=== PATIENT | male | born 1970 | race Caucasian/White ===

== ENCOUNTER 2017-10-05 08:00 | Outpatient (RCR) | payer OTHER, SELFPAY ==
--- NOTE | 2017-09-21 09:07 | PTTR_ITS ---
DATE: 09/21/17 SUBJECTIVE: Pt reporting walking about 4.5 miles this weekend without any increase in discomfort through his abdomen. He notes he has not tried any running yet but this is his goal at some point. He also notes that when performing aggressive abdominal exercises especially when involving both upper and lower body dynamic movements he has increased pressure through hernia sight. OBJECTIVE: Therapeutic procedures ([id number]). * X See flow sheet: Initiate intrinsic stabilization activities beginning with PPT and TrA activation followed by light LE dynamic movements. I do provide manual bracing at the hernia sight with some activities. Add in Pallof pull down incorporating PPT and mini marches. Pt has good body awareness and breathing techniques. * X Provided skilled instruction in proper exercise performance: * X Provided skilled manual cues to facilitate proper muscle recruitment and/ or movement pattern: * X Other: With appropriate diaphragmatic breathing pt has less protrusion of his hernia and less abdominal pressure. Pt was also seeing national sales trainer here in the clinic for gross body strengthening. See flow sheet for details. Once pt increases his intrinsic core strength I will take a look at his running mechanics. Pt was given thera band for home completion of Pallof exercises. Direct treatment time: 20 minutes Total treatment time: 20 minutes Tamara Mckay PTA
--- NOTE | 2017-10-05 09:33 | PTTR_ITS ---
DATE: 10/05/17 SUBJECTIVE: Zachery reporting doing well today. He is anxious to start some running again and would like to review running mechanics today. He has completed his strengthening exercises via hop trainer supervision prior to seeing me today without discomfort through his abdomen and increased confidence when completing core strengthening exercises. OBJECTIVE: * X Gait Training - ([id number] x1): Observe walking and running gait mechanics today via treadmill use. Initial observation shows slight pelvic drop on the right with walking and jogging, pronation through right foot and ankle, increased stride length with heel strike. I have him focus on shortening his stride length and increasing his dianelys which immediately creates forefoot strike bilaterally with less pronation noted through the right foot and decreased pelvic drop to the right. No discomfort noted throughout. I do suggest possible utilizing of accommodative type orthotics and utilization of metronome at 160-180 beats per minute while practicing shortened stride length and increased dianelys. Will discuss possible utilization of orthotic device with primary therapist Zachery Lal PT. Pt has a follow up next week for progressions to his strengthening program at that time. Will have pt re- schedule with primary therapist after that point. Direct treatment time: 20 minutes Total treatment time: 20 minutes Tamara Mckay PTA
== END 2017-10-21 23:59 | disposition home or self-care (01) ==
LOC: PT 08:00
PROVIDERS: PCP Nurse Practitioner Family; Referring Provider Nurse Practitioner Family; Visit Provider Nurse Practitioner Family
DX: K43.9 Ventral hernia without obstruction or gangrene (principal)
CPT/HCPCS: 97110; 97116

== ENCOUNTER 2018-04-14 08:10 | Outpatient (CLI) | payer OTHER, SELFPAY ==
--- NOTE | 2018-04-14 11:26 | DI.RAD_ITS ---
SYMPTOMS/DIAGNOSIS: FEVER, R50.9, ? PNEUMONIA PA AND LATERAL CHEST: The heart is normal in size. The lungs are clear. The mediastinal structures and pleura appear intact. CONCLUSION: Normal chest.
== END 2018-04-14 08:30 ==
PROVIDERS: PCP Nurse Practitioner Family; Visit Provider Nurse Practitioner Family
DX: R50.9 Fever, unspecified (principal)
CPT/HCPCS: 71046

== ENCOUNTER 2018-07-14 12:35 | Outpatient (CLI) | payer OTHER, SELFPAY ==
[2018-07-14 13:00] LABS: Abs Immature Grans 0.09 k/cumm (0.0-0.09); Absolute Basophil Count 0.03 k/cumm (0.0-0.2); Absolute Eosinophil Count 0.23 k/cumm (0.0-0.7); Absolute Lymphocyte Count 2.51 k/cumm (1.2-3.4); Absolute Monocyte Count 0.81 k/cumm (0.11-0.7); Absolute Neutrophil Count 4.06 k/cumm (1.2-6.7); Basophils % 0.4; HCT 50.2 % (40.0-50.0); HGB 16.8 g/dL (13.5-17.5); Immature Grans % 1.2; Lymphocytes % 32.5; Mean Corp. HGB Concentration 33.5 g/dL (32.0-36.0); Mean Corpuscular Hemoglobin 29.7 pg (27.0-33.0); Mean Corpuscular Volume 88.7 fL (80-95); Monocytes % 10.5; Neutrophils % 52.4; Platelet Count 176 x1000/uL (130-400); RBC 5.66 m/cumm (4.50-6.00); White Blood Cell Count 7.73 k/cumm (4.4-10.8)
[2018-07-14 13:18] LABS: Lipase 191 U/L (73-393)
[2018-07-14 13:21] LABS: ALT 55 U/L (12-78); AST 18 U/L (15-37); Alkaline Phosphatase 79 U/L (46-116); BUN 16 mg/dL (7-18); Bilirubin, Total 0.9 mg/dL (0.2-1.0); Calcium 9.4 mg/dL (8.5-10.1); Chloride 103 mmol/L (98-107); Glucose 142 mg/dL (70-100); Sodium 139 mmol/L (136-145); Total Protein 7.3 g/dL (6.4-8.2)
== END 2018-07-14 12:55 ==
PROVIDERS: PCP Nurse Practitioner Family; Visit Provider Family Medicine
DX: K86.89 Other specified diseases of pancreas (principal)
CPT/HCPCS: 36415; 80053; 83690; 85025

== ENCOUNTER 2018-10-27 09:01 | Outpatient (CLI) | payer OTHER, SELFPAY ==
[2018-10-27 09:44] LABS: Absolute Basophil Count 0.03 k/cumm (0.0-0.2); Absolute Eosinophil Count 0.25 k/cumm (0.0-0.7); Absolute Lymphocyte Count 1.59 k/cumm (1.2-3.4); Absolute Monocyte Count 0.59 k/cumm (0.11-0.7); Absolute Neutrophil Count 4.89 k/cumm (1.2-6.7); Basophils % 0.4; Eosinophils % 3.4; HCT 48.5 % (40.0-50.0); Immature Grans % 1.3; Lymphocytes % 21.3; Mean Corpuscular Hemoglobin 29.4 pg (27.0-33.0); Mean Corpuscular Volume 89.2 fL (80-95); Mean Platelet Volume 10.7 fL (8.0-11.0); Monocytes % 7.9; Neutrophils % 65.7; Platelet Count 247 x1000/uL (130-400); RBC 5.44 m/cumm (4.50-6.00); RBC Distribution Width 13.6 % (11.8-14.1); White Blood Cell Count 7.45 k/cumm (4.4-10.8)
[2018-10-27 10:32] LABS: ALT 32 U/L (16-63); AST 14 U/L (15-37); Albumin 3.6 g/dL (3.4-5.0); Alkaline Phosphatase 89 U/L (46-116); Anion Gap 8.5 mmol/L (3-11); BUN 19 mg/dL (7-18); Bilirubin, Total 0.8 mg/dL (0.2-1.0); CO2 28.5 mmol/L (21.0-32.0); CREATININE 1.08 mg/dL (0.70-1.30); Chloride 105 mmol/L (98-107); Glucose 114 mg/dL (70-100); Lipase 378 U/L (73-393); Potassium 4.7 mmol/L (3.5-5.1); Sodium 142 mmol/L (136-145); Total Protein 7.3 g/dL (6.4-8.2)
== END 2018-10-27 09:21 ==
PROVIDERS: PCP Nurse Practitioner Family; Visit Provider Nurse Practitioner Family
DX: R10.9 Unspecified abdominal pain (principal)
CPT/HCPCS: 36415; 80053; 83690; 85025

== ENCOUNTER 2019-11-09 15:29 | Outpatient (REF) | payer SELFPAY ==
[2019-11-13 15:46] LABS: Patient Race White; SARS-CoV-2 RNA Undetected (Undetected); SARS-CoV-2 Specimen Source Nasal
== END 2019-11-09 15:49 ==
LOC: NCHCN 15:29
PROVIDERS: PCP Internal Medicine; Visit Provider Internal Medicine
DX: Z20.828 Contact with and (suspected) exposure to other viral communicable diseases (principal)
CPT/HCPCS: U0003

== ENCOUNTER 2019-12-07 01:48 | Outpatient (CLI) | payer OTHER, SELFPAY ==
[2019-12-07 08:48] LABS: COMMENT (LAB VIEW ONLY) 37.52 mg/dL; Microalb ug/mg Crea 3.7 ug/mg Cr
[2019-12-07 08:51] LABS: ALT 53 U/L (16-63); AST 21 U/L (15-37); Albumin 3.8 g/dL (3.4-5.0); Alkaline Phosphatase 74 U/L (46-116); Anion Gap 8.2 mmol/L (3-11); BUN 16 mg/dL (7-18); Bilirubin, Total 0.8 mg/dL (0.2-1.0); CO2 28.8 mmol/L (21.0-32.0); CREATININE 1.06 mg/dL (0.70-1.30); Calcium 8.6 mg/dL (8.5-10.1); Calculated LDL 117 mg/dL (<100); Chloride 103 mmol/L (98-107); Cholesterol 212 mg/dL (<200); Glucose 169 mg/dL (74-106); HDL Cholesterol 35 mg/dL (40-60); Potassium 4.6 mmol/L (3.5-5.1); Sodium 140 mmol/L (136-145); Total Protein 6.6 g/dL (6.4-8.2); Triglyceride 302 mg/dL (<150)
[2019-12-10 12:18] LABS: Hepatitis C Ab w Rflx HCV PCR Negative (Negative)
== END 2019-12-07 02:08 ==
PROVIDERS: PCP Nurse Practitioner Family; Visit Provider Internal Medicine Endocrinology, Diabetes & Metabolism
DX: E11.9 Type 2 diabetes mellitus without complications (principal); I10 Essential (primary) hypertension; E78.5 Hyperlipidemia, unspecified; Z79.4 Long term (current) use of insulin; Z11.59 Encounter for screening for other viral diseases; E66.9 Obesity, unspecified
CPT/HCPCS: 36415; 80053; 80061; 86803; 82043; 82570; 83036

== ENCOUNTER 2020-02-21 14:20 | Outpatient (REF) | payer OTHER, SELFPAY ==
[2020-02-24 15:50] LABS: COVID-19 RT-PCR UVMMC Result Negative (Negative)
== END 2020-02-21 14:40 ==
LOC: NCHCN 14:20
PROVIDERS: PCP Nurse Practitioner Family; Visit Provider Nurse Practitioner Family
DX: Z20.828 Contact with and (suspected) exposure to other viral communicable diseases (principal)
CPT/HCPCS: U0003

== ENCOUNTER 2020-09-26 00:01 | Emergency (ER) | payer OTHER, SELFPAY ==
[2020-09-26] VITALS (37 sets, daily range): BP systolic 114–146; BP diastolic 82–93; PULSE 85–106; RESP 11–21; TEMP 36.5; O2SAT 93–97
--- NOTE | 2020-09-26 | RT.EKG_ITS ---
APPROVED REPORT Exam: Resting ECG Reason for Exam: CHEST PAIN Patient Location: E HR:103 bpm ECG Measurements Heart Rate 103 AXIS FL 159 P 35 QRSd 85 QRS 23 QT 331 T -31 QTc 433 Conclusion Sinus tachycardia...rate> 99 Low voltage, precordial leads...precordial leads <1.0mV Normal [place] Diffuse ST flattening. No STEMI
--- NOTE | 2020-09-26 00:03 | W.ED.GENAD ---
Discharge Plan Discharge Details Chief Complaint: Chest Pain Primary Care Provider: Aracelis Ayala ED Provider: Kiran Black Home Meds and New Rx's Prescriptions: No Action bisacodyl 10 mg suppository 10 mg TN DAILY PRN PRN (Reason: constipation) Qty: 10 RF: 0 insulin aspart U-100 [Novolog Flexpen U-100 Insulin] 100 unit/mL (3 mL) insulin pen See Rx Instructions Sub-Q TID RF: 0 (DME) Dexcom G6 Sensor Device See Rx Instructions .ROUTE .MEDSUPPLY Qty: 3 RF: 0 tramadol 50 mg tablet 50 mg PO TID PRN (Reason: pain) Qty: 90 RF: 0 ondansetron 4 mg tablet,disintegrating 4 mg PO TID PRN (Reason: nausea and vomiting) Qty: 90 RF: 0 acetaminophen 325 MG tablet 650 mg PO Q4H PRN RF: 0 coenzyme Q10 100 MG capsule 100 mg PO DAILY RF: 0 vitamin B complex 1 EACH capsule 1 ea PO DAILY RF: 0 (DME) pen needle, diabetic [Pen Needle] 31 gauge x 5/16 needle See Dose Instructions .ROUTE .MEDSUPPLY Qty: 500 RF: 3 Tresiba FlexTouch U-100 100 unit/mL (3 mL) insulin pen 12 unit SC BID RF: 0 cholecalciferol (vitamin D3) [D3-2000] 50 mcg (2,000 unit) capsule See Rx Instructions PO DAILY RF: 0 tacrolimus 0.03 % ointment 1 applic topical BID RF: 0 duemfm-gvwduudo-fcbywcc 468 mg (8,000 -30K-30K unit) tablet See Rx Instructions PO .COMPLEX RF: 0 multivitamin 1 EACH capsule 1 cap PO DAILY RF: 0 Medical Decision Making Patient presenting with chest pain. Patient reporting episode of chest pain associated with back pain and shoulder pain couple times a week since August. Feels like emanating from his abdomen typically if pancreatitis problems did not involve any episodes of chest pain or upper back pain. He reports shortness of breath and occasional diaphoresis associated with chest pain. It is not necessarily exertional. Tonight it woke him up and he decided to come in. He reports having worse episodes than tonight in the past. His EKG is mild sinus tachycardia with diffuse ST flattening. IV established. Aspirin ordered. Laboratory studies and chest x-ray obtained. Medical Records Medical records reviewed: Yes I reviewed the patient's medical records. Lab Data Lab results reviewed: Yes I reviewed the patient's lab results. ECG Data Attestation: I personally reviewed and interpreted this ECG (s) as follows: Prior ECG tracings: available for review Interpretation: see EKG HPI General Mode of arrival: ambulatory. Date/Time Provider Initiated Documentation: 09/26/20 00:03. Limitations to Documentation: no limitations. Information obtained by: patient, RN notes reviewed and old records reviewed. HPI Narrative: Patient presents to the ED with chest pain. Patient woke up experiencing his chronic abdominal pain related to pancreatitis as well as pain radiating into the chest, shoulders, back. He reports feeling short of breath and nauseated with this. Subsequently, symptoms are much improved with no intervention. He has minimal discomfort in the chest and back at this time. He reports having episodes like this once or twice a week since the beginning of August. Sometimes associated with exertion and other times random. Tonight he was just sleeping and woke up with it. He does not have known cardiac disease. He smokes a pipe on occasion. Does have history of diabetes but that is related to his pancreatitis and pancreatic insufficiency. Does not have history of hypertension, family history of early heart disease. He reports borderline cholesterol problems. He has no leg pain or leg swelling. No diaphoresis tonight but has had with other episodes. No change in his abdominal complaints which include pain, nausea, vomiting. Seems to be doing better with the new regimen started a few weeks ago in regards to his pancreatitis. Related Data Home Medications Medication Instructions Recorded Confirmed multivitamin 1 cap PO DAILY 09/13/13 09/26/20 acetaminophen 650 mg PO Q4H PRN tab-cap 07/22/14 09/26/20 coenzyme Q10 100 mg PO DAILY 07/22/14 09/26/20 vitamin B complex 1 ea PO DAILY cap 06/29/17 09/26/20 bisacodyl 10 mg rectal suppository 10 mg TN DAILY PRN PRN #10 supp 10/27/18 09/26/20 pen needle, diabetic 31 gauge x #500 each 07/30/19 09/03/2007/06 cholecalciferol (vitamin D3) 50 See Rx Instructions PO DAILY 11/28/19 09/26/20 mcg (2,000 unit) capsule insulin degludec 100 unit/mL (3 12 unit SC BID ml 11/28/19 09/26/20 mL) subcutaneous pen tacrolimus 0.03 % topical ointment 1 applic TOPICAL BID 03/07/20 09/26/20 blood-glucose sensor #3 ea 09/03/20 09/03/20 insulin aspart U-100 100 unit/mL See Rx Instructions SUB-Q TID ml 09/03/20 09/26/20 (3 mL) subcutaneous pen ondansetron 4 mg disintegrating 4 mg PO TID PRN #90 tab-cap 09/03/20 09/26/20 tablet tramadol 50 mg tablet 50 mg PO TID PRN #90 tab 09/03/20 09/26/20 tdxkow-pcmagigu-vnydrsf 468 mg See Rx Instructions PO .COMPLEX 09/18/20 09/26/20 (8,000-30K-30K unit) tablet Previous Rx's Medication Instructions Recorded bisacodyl 10 mg rectal suppository 10 mg TN DAILY PRN PRN #10 supp 10/27/18 pen needle, diabetic 31 gauge x #500 each 07/30/1907/06 ondansetron 4 mg disintegrating 4 mg PO TID PRN #90 tab-cap 09/03/20 tablet tramadol 50 mg tablet 50 mg PO TID PRN #90 tab 09/03/20 Allergies Allergy/AdvReac Type Severity Reaction Status Date / Time pravastatin Allergy Mild Other (See Unverified 09/26/20 00:10 Comment) gemfibrozil Allergy Unknown Verified 09/26/20 00:10 iodine Allergy Unknown Verified 09/26/20 00:10 house dust AdvReac Intermediate Verified 09/26/20 00:10 hydromorphone AdvReac manic Verified 09/26/20 00:10 squid AdvReac nausea Verified 09/26/20 00:10 enteric coating AdvReac Unknown N,V Uncoded 09/26/20 00:10 Review of Systems Narrative: 12/04 Review of Systems completed and is negative except as stated above in HPI (Systems reviewed: Const, Eyes, ENT, Resp, CV, GI, , MSK, Skin, Neuro) PFSH Medical History Acute renal failure (09/23/13) Related to h/o acute pancreatitis Chronic pancreatitis Diabetes (07/23/14) HbA1c goal: 6.5%; 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 Protein calorie malnutrition (12/26/13) Seborrheic dermatitis Lichenified; [facility] Vitamin D deficiency (01/22/14) Surgical History Cholecystectomy Endoscopy 11/22/2014 stent placement to create duodenal pancreatic fistula to drain pancreatic fluid collections ([facility]) History of biopsy (02/13/20) punch biopsy R cheek,[facility] Derm Laparotomy (12/20/13) Repair of inguinal hernia 1998 robotic ventral hernia repair (03/11/16) [facility] Vasectomy Family History Mother Essential hypertension Autoimmune hepatitis Hyperlipidemia Rheumatoid arthritis Father Essential hypertension Mental disorder paranoid schiziophrenia Grandfather Heart disease Myocardial infarction Grandfather Stroke Grandmother Skin, metastatic cancer to Grandmother Diabetes Social History Smoking/Tobacco Use Status: Current-Occasional Tobacco Type: pipe Other: Once every 3-4weeks Smokeless tobacco user: other Smoking risk assessment performed?: Yes Alcohol Intake: never Drug use: Never current occupation: behavioral health at [employer] Working smoke detector in home: Yes Fire extinguisher in home: Yes Carbon monox detector in home: Yes Do you feel safe at home: Yes Do you feel safe in your relationship?: Yes Exam Narrative Exam Narrative: Const: WDWN male in NAD. HEENT: NC/AT. Normal facial exam. Eyes: Normal conjunctiva and sclera. Neck: Supple. Trachea midline. Lungs: Normal respiratory effort. Lungs are clear. Cor: RRR without murmur/gallop. Good radial pulses. GI: Soft. NT/ND. No guarding or rebound. Neuro: A+O x 3. Normal speech, mentation, gait. Cranial nerves II - XII grossly intact. No gross motor or sensory deficit. Ext: No C/C/E. No calf tenderness. Skin: Warm and dry.
--- NOTE | 2020-09-26 00:15 | DI.RAD_ITS ---
Exam(s) XR CHEST 2V PA LATERAL EXAM: XR CHEST 2V PA LATERAL CLINICAL HISTORY: CP TECHNIQUE: COMPARISON: CR XR CHEST 2V PA LATERAL from 04/14/2018 FINDINGS: Heart is not enlarged. Lungs appear clear with perhaps minimal areas of atelectasis in the lung base s. No pleural effusion seen. IMPRESSION: No evidence of acute process. Please see accompanying chest CT report. RADIATION DOSE DELIVERED: Total DLP
[2020-09-26 00:32] LABS: Abs Immature Grans 0.14 10^3/uL (0.0-0.06); Absolute Basophil Count 0.07 10^3/uL (0.0-0.2); Absolute Eosinophil Count 0.08 10^3/uL (0.0-0.7); Absolute Lymphocyte Count 1.69 10^3/uL (1.2-3.4); Absolute Monocyte Count 0.95 10^3/uL (0.1-0.8); Absolute Neutrophil Count 7.75 10^3/uL (1.2-6.7); Basophils % 0.7; Eosinophils % 0.7; HCT 50.1 % (40.0-50.0); HGB 16.1 g/dL (13.5-17.5); Immature Grans % 1.3; Lymphocytes % 15.8; MCH 29.2 pg (27.0-33.0); MCHC 32.1 % (32.0-36.0); MCV 90.8 fL (80-95); MPV 10.5 fL (8.0-11.0); Monocytes % 8.9; Neutrophils % 72.6; Nucleated RBC 0 %; Platelet Count 246 10^3/uL (130-400); RBC 5.52 10^6/uL (4.36-5.78); RDW 13.5 % (11.8-14.1); RDW-SD 45.7 fL; WBC 10.68 10^3/uL (4.4-10.8)
[2020-09-26 00:50] LABS: ALT 26 U/L (16-63); AST 12 U/L (15-37); Albumin 3.6 g/dL (3.4-5.0); Alkaline Phosphatase 81 U/L (46-116); Anion Gap 7.1 mmol/L (3-11); BUN 17 mg/dL (7-18); Bilirubin, Total 1.3 mg/dL (0.2-1.0); CO2 28.9 mmol/L (21.0-32.0); CREATININE 1.2 mg/dL (0.70-1.30); Chloride 103 mmol/L (98-107); Glucose 136 mg/dL (74-106); Magnesium 1.9 mg/dL (1.8-2.4); Potassium 4.3 mmol/L (3.5-5.1); Sodium 139 mmol/L (136-145); Total Protein 6.5 g/dL (6.4-8.2)
[2020-09-26 00:58] LABS: Troponin I < 0.05 ng/mL (<0.06)
--- NOTE | 2020-09-26 01:00 | DI.CT_ITS ---
Exam(s) CT CHEST PE CTA EXAM: CT CHEST PE CTA CLINICAL HISTORY: CP with positive d-dimer. TECHNIQUE: Imaging Protocol: Axial CT angiography was performed with multi-slice acquisition and mu lti-planar and/or 3D reconstructions. CONTRAST MATERIAL: Intravenous: Omnipaque 350 Contrast volume:structured data in ml COMPARISON: CT ABD PELVIS WITH CONTRAST from 06/20/2017 FINDINGS: CT angiography of the chest was performed with intravenous infusion of 100 cc of Omnipaque 350. The lungs are poorly inflated with dependent and mild atelectasis. No focal pulmonary abnormality se en. No pleural effusion. Tracheobronchial tree appears intact. No evidence of pulmonary embolic disease. Thoracic aorta is of normal diameter, no thoracic aortic an eurysm or dissection, major branch vessels appear intact. No mediastinal or hilar adenopathy. Images obtained through the upper abdomen show abdominal ascites and show fluid collection adjacent t o the stomach. There is hepatic steatosis. Prior CT showed evidence of pancreatitis with peripancre atic fluid collections. Chronic pancreatitis likely with intra-abdominal fluid collections, neoplast ic disease not excluded. Correlation with abdominal and pelvic CT may be obtained if clinically appr opriate. IMPRESSION: No evidence of pulmonary embolic disease. Incompletely visualized upper abdominal abnormalities with ascites and perigastric fluid collection. Question chronic pancreatitis, please see above discussio n. Follow-up abdominal CT may be obtained if clinically appropriate. RADIATION DOSE DELIVERED: 422.71mGy.cm Total DLP 422.71mGy.cm Total DLP CTDIvol DATA REPOSITORY: All CT scans at this facility are submitted to the National Radiology Data Registry (NRDR) Dose Index Registry (DIR) with the [employer] (ACR). RADIATION OPTIMIZATION: All CT scans at this facility use at least one of these dose optimization te chniques: automated exposure control; mA and/or kV adjustment per patient size (includes targeted exa ms where dose is matched to clinical indication); or iterative reconstruction.
[2020-09-26 01:02] LABS: D-Dimer 1780 ng/mlFEU (<500)
--- NOTE | 2020-09-26 01:02 | DI.VRAD_ITS ---
PROCEDURE INFORMATION: Exam: XR Chest Exam date and time: 09/26/2020 12:26 AM Age: 50 years old Clinical indication: Other: Chest pain TECHNIQUE: Imaging protocol: XR of the chest. Views: 2 views. COMPARISON: CR XR CHEST 2V PA LATERAL 04/14/2018 11:28 AM FINDINGS: Lungs: Unremarkable. No consolidation. Pleural spaces: Unremarkable. No pleural effusion. No pneumothorax. Heart/Mediastinum: Unremarkable. No cardiomegaly. Bones/joints: Unremarkable. IMPRESSION: No acute findings. Dictated and Authenticated by: Westley Hsu MD. Ordering:HEATHER Beck MD
[2020-09-26] MEDS: Normal Saline - Diluent 50 ML VIAL IV (01:59)
[2020-09-26] MEDS: Omnipaque 350 MG/ML 100 ML BTL IJ (02:00)
[2020-09-26] MEDS: Aspirin 81 MG CHEW 324 MG CH (02:06)
--- NOTE | 2020-09-26 02:20 | DI.VRAD_ITS ---
Addendum created by Westley Hsu MD on 09/26/2020 2:41:54 AM EDT: The study was again discussed with PAVAN MARMOLEJO, 09/26/2020 2:35 AM EDT. He was able to find a CT report from [facility] dated September 06, 2020, which describes a new bilobed fluid collection around the distal stomach and extending into the gastrohepatic ligament. This is similar to the findings on today's study, although only a small portion of the abdomen is imaged. The patient does not describe any new abdominal symptoms. Retrieval of these images and direct comparison is advised at final read. Addendum created by Westley Hsu MD on 09/26/2020 2:21:01 AM EDT: Findings were discussed with PAVAN MARMOLEJO at 09/26/2020 2:20 AM EDT. Initial report created on 09/26/2020 2:20:24 AM EDT: PROCEDURE INFORMATION: Exam: CTA Chest With Contrast Exam date and time: 09/26/2020 1:11 AM Age: 50 years old Clinical indication: Pain; Other: Cp with positive d-dimer TECHNIQUE: Imaging protocol: Computed tomographic angiography of the chest with contrast. 3D rendering (Not supervised by radiologist): MIP and/or 3D reconstructed images were created by the technologist. Contrast material: OMNIPAQUE 350; Contrast volume: 100 ml; Contrast route: INTRAVENOUS (IV); COMPARISON: CR XR CHEST 2V PA LATERAL 09/26/2020 12:36 AM FINDINGS: Pulmonary arteries: Normal. No pulmonary emboli. Aorta: Unremarkable. No aortic aneurysm. No aortic dissection. Lungs: Mild dependent atelectasis or scarring. Probable expiratory phase imaging with scattered mild increased attenuation throughout the lungs. Negative for significant consolidation. No evidence of endobronchial mucus. Pleural spaces: Unremarkable. No pneumothorax. No pleural effusion. Heart: Unremarkable. No cardiomegaly. No pericardial effusion. Lymph nodes: Unremarkable. No enlarged lymph nodes. Stomach and bowel: Stomach is partially visualized and is abnormal. Gastric lo are moderately thickened. Prominent fluid accumulation noted anterior and medial to the gastric body. The adjacent gastric wall may be discontinuous. Please see axial image number 55. Fat stranding is present around the stomach. Intraperitoneal space: Free fluid is present in the upper abdomen, noted around the liver and spleen. There is no free air observed in the upper abdomen. Only a small portion of the abdomen is visible. Bones/joints: Unremarkable. No acute fracture. Soft tissues: No evidence of chest wall hematoma or chest wall emphysema. IMPRESSION: 1. Negative for pulmonary embolism. 2. Abnormal stomach, incompletely visualized. Possible contained gastric perforation. Correlate with history of pancreatitis and pseudocyst. Additional free fluid and fat stranding present across the upper abdomen. Consider CT abdomen pelvis with intravenous and oral enteric contrast. Comparison with recent outside imaging would be helpful, if available. Dictated and Authenticated by: Westley Hsu MD. Ordering:HEATHER Beck MD
--- NOTE | 2020-09-26 03:45 | RT.EKG_ITS ---
APPROVED REPORT Exam: Resting ECG Reason for Exam: chest pain Patient Location: E HR:88 bpm ECG Measurements Heart Rate 88 AXIS MI 159 P 29 QRSd 82 QRS 10 QT 358 T -2 QTc 434 Conclusion Sinus rhythm...normal P axis, V-rate 60- 99 Low voltage, precordial leads...precordial leads <1.0mV There are no significant changes compared to prior EKG performed on 09/26/2020 at 00:09.
[2020-09-26 04:17] LABS: Troponin I < 0.05 ng/mL (<0.06)
== END 2020-09-26 04:45 | disposition home or self-care (01) ==
PROVIDERS: Emergency Provider Emergency Medicine; PCP Nurse Practitioner Family
DX: R07.89 Other chest pain (principal); R79.1 Abnormal coagulation profile; R06.02 Shortness of breath; K86.1 Other chronic pancreatitis; Z79.4 Long term (current) use of insulin; E08.9 Diabetes mellitus due to underlying condition without complications; R11.2 Nausea with vomiting, unspecified
CPT/HCPCS: 36415; 71275; 80053; 93005; 99285; 71046; 83735; 84484; 85025; 85379; 93010; J3490

== ENCOUNTER 2020-10-09 01:07 | Outpatient (CLI) | payer OTHER, SELFPAY ==
--- NOTE | 2020-10-09 11:00 | DI.NM_ITS ---
APPROVED REPORT Exam: Exercise Treadmill Patient Location: Out-Patient Room/Bed: Stress Nurse: Yessi Edwards RN; Tere Little RN Ordering Provider:PAVAN BROOKS, Contact Number: [phone] BMI: 26.11 Baseline Rhythm: Sinus Rhythm Indications: chest pain Medical History Medical History: LARISA, HTN, HLD, DM3, Obesity Cardiac Medications: Coenzyme Q10, Ondansetron Allergies: Pravastatin, gemfibrozil, iodine, dust, hydromorphone, squid, enteric coating Cardiac Risk Factors: Family Hx, HTN< DM, Smoker, HLD, Obesity Previous Cardiac Procedures: none Pretest Chest Pain Characteristics: none Exercise History: Sedentary Physical Disabilities: none Lung Sounds: Clear to auscultation Heart Sounds: Regular Stress Test Details Test: Exercise stress testing was performed using a Panda protocol. Rest Isotope: Tc-99m Sestamibi. Dose: 12.1 Date: 10/09/2020 Injection Time: 1130 Stress Isotope: Tc-99m Sestamibi. Dose: 36 Date: 10/09/2020 Injection Time: 1330 HR Resting HR Supine: 63 bpm Max Heart Rate (APMHR): 171.416311 bpm Resting HR Standin bpm Target HR (85% APMHR): 145.641629 bpm Max HR Achieved: 171 bpm % of APMHR: 100.00 Recovery HR: 99 bpm HR response to stress: Normal HR response to stress BP Resting BP Supine: 132/86 mmHg Resting BP Standin/84 mmHg Max BP: 176/72 mmHg Recovery BP: 130/72 mmHg BP response to stress: Normal blood pressure response to stress. ECG Resting ECG: Sinus Rhythm Ectopy: none Stress ECG: Sinus Tachycardia ST Change: No significant ST segment changes noted Arrhythmia: None Recovery ECG: Sinus Rhythm Recovery ST Change: No significant ST segment changes noted Recovery Arrhythmia: None Clinical Reason for Termination: Fatigue Stress Symptoms: none Exercise duration: 13 min31 sec Highest Stage Reached: Stage 5: 5.0 mph at 18% grade. Exercise capacity: 14.51 METs Rate Pressure Product: [id number] Stress ECG Conclusion 1. The patient exercised for 13 minutes and 30 seconds (14.5 METS). 2. The patient had no symptoms suggestive of ischemia. 3. The patient's heart rate and blood pressure augmented appropriately. There were no ECG changes lyons ggestive of ischemia. Stress Test Summary STAGE Time (mins) Speed (mph) Grade (%) HR BP SYMPTOMS METS Supine 63 132/86 Standing 63 132/84 1 3 1.7 10 88 136/72 4.6 2 6 2.5 12 103 144/78 7 3 9 3.4 14 126 150/62 10.2 1 min recovery 141 166/90 3 min recovery 103 176/72 6 min recovery 99 130/72 MPI Conclusion The ejection fraction was 63% with stress. There were no wall motion abnormalities. There is no evidence of ischemia on the imaging portion exam. This represents a normal SPECT stress test. Radiologist Interpretation Radiologist agrees with [employer]'s Interpretation. Radiologist Interpretation by: Ashley Stubbs MD Interpretation Date/Time: 10/14/2020 15:51:38
== END 2020-10-09 01:27 ==
PROVIDERS: PCP Nurse Practitioner Family; Visit Provider Emergency Medicine
DX: R07.9 Chest pain, unspecified (principal); Z82.49 Family history of ischemic heart disease and other diseases of the circulatory system; I10 Essential (primary) hypertension; F17.210 Nicotine dependence, cigarettes, uncomplicated; E11.9 Type 2 diabetes mellitus without complications; E78.5 Hyperlipidemia, unspecified; E66.9 Obesity, unspecified
CPT/HCPCS: 78452; 93017

== ENCOUNTER 2020-12-29 15:13 | Outpatient (REF) | payer OTHER, SELFPAY ==
[2020-12-30 16:23] LABS: COVID-19 RT-PCR UVMMC Result Negative (Negative)
== END 2020-12-29 15:14 | disposition home or self-care (01) ==
LOC: NCHCN 15:13
PROVIDERS: PCP Nurse Practitioner Family; Visit Provider Family Medicine
DX: Z20.822 Contact with and (suspected) exposure to COVID-19 (principal)
CPT/HCPCS: U0003

== ENCOUNTER 2021-03-03 18:40 | Outpatient (REF) | payer OTHER, SELFPAY ==
[2021-03-05 11:42] LABS: COVID-19 RT-PCR UVMMC Result Negative (Negative)
== END 2021-03-03 18:41 | disposition home or self-care (01) ==
LOC: NCHCN 18:40
PROVIDERS: PCP Nurse Practitioner Family; Visit Provider Family Medicine
DX: Z20.822 Contact with and (suspected) exposure to COVID-19 (principal)
CPT/HCPCS: U0003

== ENCOUNTER 2021-04-01 13:51 | Outpatient (REF) | payer OTHER, SELFPAY ==
[2021-04-01 21:20] LABS: Abs Immature Grans 0.11 10^3/uL (0.0-0.06); Absolute Basophil Count 0.09 10^3/uL (0.0-0.2); Absolute Eosinophil Count 0.23 10^3/uL (0.0-0.7); Absolute Lymphocyte Count 1.97 10^3/uL (1.2-3.4); Absolute Monocyte Count 0.72 10^3/uL (0.1-0.8); Absolute Neutrophil Count 3.81 10^3/uL (1.2-6.7); Basophils % 1.3; Eosinophils % 3.3; HCT 50.9 % (40.0-50.0); HGB 16.1 g/dL (13.5-17.5); Immature Grans % 1.6; Lymphocytes % 28.4; MCH 29.4 pg (27.0-33.0); MCHC 31.6 % (32.0-36.0); MCV 93.1 fL (80-95); MPV 11.6 fL (8.0-11.0); Monocytes % 10.4; Nucleated RBC 0 %; Platelet Count 236 10^3/uL (130-400); RBC 5.47 10^6/uL (4.36-5.78); RDW 12.3 % (11.8-14.1); RDW-SD 42.6 fL; WBC 6.93 10^3/uL (4.4-10.8)
[2021-04-01 22:00] LABS: ALT 51 U/L (16-63); AST 25 U/L (15-37); Alkaline Phosphatase 87 U/L (46-116); Anion Gap 8.1 mmol/L (3-11); BUN 14 mg/dL (7-18); Bilirubin, Total 0.7 mg/dL (0.2-1.0); CO2 29.9 mmol/L (21.0-32.0); Calcium 9.2 mg/dL (8.5-10.1); Calculated LDL 121 mg/dL (<100); Chloride 103 mmol/L (98-107); Cholesterol 230 mg/dL (<200); Glucose 150 mg/dL (74-106); HDL Cholesterol 39 mg/dL (40-60); Magnesium 2.1 mg/dL (1.8-2.4); Potassium 4.7 mmol/L (3.5-5.1); Sodium 141 mmol/L (136-145); Triglyceride 350 mg/dL (<150); Vitamin B12 951 pg/mL (193-986)
[2021-04-02 00:08] LABS: Vitamin D 25 Total 50.7 ng/mL (30-100)
[2021-04-02 12:07] LABS: Hemoglobin A1C 6.6 % (<5.7)
[2021-04-02 12:20] LABS: Ferritin 70 ng/mL (26-388)
[2021-04-02 12:29] LABS: Lipase 1107 U/L (73-393)
== END 2021-04-01 13:52 | disposition home or self-care (01) ==
LOC: NCHCN 13:51
PROVIDERS: Visit Provider Family Medicine
DX: K86.81 Exocrine pancreatic insufficiency (principal); E11.9 Type 2 diabetes mellitus without complications; I10 Essential (primary) hypertension; G47.33 Obstructive sleep apnea (adult) (pediatric)
CPT/HCPCS: 80053; 80061; 82306; 83690; 82607; 82728; 83036; 83735; 85025

== ENCOUNTER 2021-05-19 16:15 | Outpatient (CLI) | payer OTHER, SELFPAY ==
--- NOTE | 2021-05-19 | DI.CT_ITS ---
Exam(s) CT ABDOMEN PELVIS W EXAM: CT ABDOMEN PELVIS W CLINICAL HISTORY: ABD PAIN TECHNIQUE: COMPARISON: CT ABD PELVIS WITH CONTRAST from 06/20/[address] CHEST PE CTA from 09/26/2020 CT,NM,TMT NM MPI REST STRESS GRP from 10/09/2020 FINDINGS: CT examination of the abdomen and pelvis was performed with bolus infusion of 100 cc of Omnipaque 350 . Images obtained through the lung bases show areas of apparent atelectasis and a new 5 millimeter in diameter noncalcified right lower lobe pulmonary nodule, follow-up chest CT recommended in 6 months. . The note is made of hepatic steatosis with no evidence of a focal mass. Spleen is unremarkable in appearance.. Gallbladder has been surgically removed, bile ducts are unremarkable. There is reportedly a history of pancreatitis, there are apparent pseudocysts of the pancreatic head measuring about 7 cm in greatest diameter. Smaller fluid collection noted adjacent to the left hepat ic lobe, 22 millimeters period no recent prior examinations available comparison. Moderate fat edema in right upper quadrant and increased wall thickness gastric antrum and duodenum noted consistent wi th reaction to adjacent inflammatory process, no evidence of obstruction.. Adrenals appear normal bilaterally. Kidneys appear normal except for a small presumed left renal cyst with no evidence of renal mass, hyd ronephrosis, or nephrolithiasis. Unremarkable bladder. There is no evidence of abdominal or pelvic adenopathy. Abdominal aorta is of normal diameter and no abnormality is seen involving major visceral branches.. Appendix is normal. No evidence diverticulitis or bowel obstruction. No significant abdominal wall hernia seen. Impression: The appearance is consistent with chronic and/or acute pancreatitis with associated pseudo cysts of t he pancreatic head as described above. Associated reactive presumed inflammatory wall thickening of adjacent gastric antrum and duodenum.. 5 millimeter right lower lobe intrapulmonary nodule, six-month follow-up chest CT recommended. Incidental Findings RADIATION DOSE DELIVERED: 1,126.68mGy.cm Total DLP 1,126.68mGy.cm Total DLP !Error CTDIvol DATA REPOSITORY: All CT scans at this facility are submitted to the National Radiology Data Registry (NRDR) Dose Index Registry (DIR) with the [employer] (ACR). RADIATION OPTIMIZATION: All CT scans at this facility use at least one of these dose optimization te chniques: automated exposure control; mA and/or kV adjustment per patient size (includes targeted exa ms where dose is matched to clinical indication); or iterative reconstruction.
[2021-05-19 15:53] LABS: Abs Immature Grans 0.09 10^3/uL (0.0-0.06); Absolute Basophil Count 0.07 10^3/uL (0.0-0.2); Absolute Eosinophil Count 0.25 10^3/uL (0.0-0.7); Absolute Lymphocyte Count 1.81 10^3/uL (1.2-3.4); Absolute Monocyte Count 1.02 10^3/uL (0.1-0.8); Absolute Neutrophil Count 5.46 10^3/uL (1.2-6.7); Basophils % 0.8; Eosinophils % 2.9; HCT 46.1 % (40.0-50.0); HGB 14.6 g/dL (13.5-17.5); Lymphocytes % 20.8; MCH 29.2 pg (27.0-33.0); MCHC 31.7 % (32.0-36.0); MCV 92.2 fL (80-95); MPV 10.8 fL (8.0-11.0); Monocytes % 11.7; Neutrophils % 62.8; Nucleated RBC 0 %; Platelet Count 207 10^3/uL (130-400); RDW 12.3 % (11.8-14.1); RDW-SD 42.1 fL
[2021-05-19 15:54] LABS: ALT 28 U/L (16-63); AST 14 U/L (15-37); Albumin 3.3 g/dL (3.4-5.0); Alkaline Phosphatase 84 U/L (46-116); Anion Gap 6.6 mmol/L (3-11); BUN 17 mg/dL (7-18); Bilirubin, Total 0.8 mg/dL (0.2-1.0); CO2 31.4 mmol/L (21.0-32.0); Calcium 8.6 mg/dL (8.5-10.1); Chloride 100 mmol/L (98-107); Glucose 173 mg/dL (74-106); Potassium 4.5 mmol/L (3.5-5.1); Sodium 138 mmol/L (136-145)
[2021-05-19] MEDS: Omnipaque 350 MG/ML 50 ML BTL IJ (15:58)
[2021-05-19] MEDS: Breeza Beverage 473 ML BTL 950 ML PO (15:59)
[2021-05-19 17:16] LABS: Lipase 642 U/L (73-393)
[2021-05-19] MEDS: Omnipaque 350 MG/ML 100 ML BTL IJ (17:50)
--- NOTE | 2021-05-19 18:27 | DI.VRAD_ITS ---
PROCEDURE INFORMATION: Exam: CT Abdomen And Pelvis With Contrast Exam date and time: 05/19/2021 5:19 PM Age: 51 years old Clinical indication: Other: Abd pain; Prior surgery; Surgery date: 6+ months; Surgery type: Gallbladder, hernia TECHNIQUE: Imaging protocol: Computed tomography of the abdomen and pelvis with contrast. Radiation optimization: All CT scans at this facility use at least one of these dose optimization techniques: automated exposure control; mA and/or kV adjustment per patient size (includes targeted exams where dose is matched to clinical indication); or iterative reconstruction. Contrast material: OMNIPAQUE 350; Contrast volume: 100 ml; Contrast route: INTRAVENOUS (IV); Other contrast: Oral, onmipaque 350, 900; COMPARISON: CT ABD PELVIS WITH CONTRAST 06/20/2017 7:31 PM FINDINGS: Lungs: Linear scarring or atelectasis both lung bases. 5 mm nodule right lower lobe series 4, image 4. Diaphragm: Small hiatal hernia. Liver: Diffuse decrease in hepatic parenchymal density, consistent with fatty infiltration. Gallbladder and bile ducts: Gallbladder surgically absent. Pancreas: Atrophy at the body and tail of the pancreas. Spleen: Normal. No splenomegaly. Adrenal glands: Normal. No mass. Kidneys and ureters: 1.6 cm simple cyst left kidney. No hydronephrosis. Stomach and bowel: Edematous change right upper quadrant with wall thickening at the antrum of the stomach and proximal duodenum. Bilobed fluid collection at the region of the proximal duodenum and head of the pancreas possibly pseudocysts, with the superior and inferior portions of the collection 5.4 x 6.7 by 5.9 cm, and 6.8 x 5 by 6 cm respectively. Smaller collection adjacent to the left lobe liver at the terrie hepatis 2.2 x 1.6 by 1.6 cm. Correlate with more recent prior studies if available. Above average stool throughout the colon. Appendix: No evidence of appendicitis. Intraperitoneal space: Unremarkable. No free air. No significant fluid collection. Vasculature: Unremarkable. No abdominal aortic aneurysm. Lymph nodes: Prominent dc-aortic lymph nodes. Urinary bladder: Unremarkable as visualized. Reproductive: Unremarkable as visualized. Bones/joints: Unremarkable. No acute fracture. Soft tissues: Unremarkable. IMPRESSION: 1. Edematous change right upper quadrant with wall thickening at the antrum of the stomach and proximal duodenum. Bilobed fluid collection at the region of the proximal duodenum and head of the pancreas possibly pseudocysts, with the superior and inferior portions of the collection 5.4 x 6.7 by 5.9 cm, and 6.8 x 5 by 6 cm respectively. Smaller collection adjacent to the left lobe liver at the terrie hepatis 2.2 x 1.6 by 1.6 cm. Correlate with more recent prior studies if available. 2. 5 mm nodule right lower lobe series 4, image 4. For patients at low risk (minimal or absent history of smoking and of other known risk factors), no routine follow-up is indicated. For patients at high risk (history of smoking or of other known risk factors), consider optional CT Chest at 12 months. (Reference: Shruthi) REFERENCES: Sohahomarisol H, et al. Guidelines for Management of Incidental Pulmonary Nodules Detected on CT Images: From the Fleischner Society 2017. Radiology. 2017;284(1):228-243. Dictated and Authenticated by: Ben Simpson MD. Ordering:NILAM Ho MD
== END 2021-05-19 16:35 ==
PROVIDERS: Visit Provider Nurse Practitioner Family
DX: R10.9 Unspecified abdominal pain (principal); R93.5 Abnormal findings on diagnostic imaging of other abdominal regions, including retroperitoneum; K86.1 Other chronic pancreatitis; R91.8 Other nonspecific abnormal finding of lung field
CPT/HCPCS: 36415; 80053; 83690; 74177; 85025; J3490; Q9967

== ENCOUNTER → 2021-05-26 14:55 | Outpatient (CLI) | payer OTHER, SELFPAY ==
--- NOTE | 2021-05-26 | DI.CT_ITS ---
Exam(s) CT ABDOMEN PELVIS W EXAM: CT ABDOMEN PELVIS W CLINICAL HISTORY: ACUTE VOMITING,R11.10,PANCREATIC PSEUDOCYST,K86.3 TECHNIQUE: Imaging Protocol: Axial computed tomography images with coronal and sagittal reformatted images were created and reviewed CONTRAST MATERIAL: Intravenous: Omnipaque 350 Contrast volume:100 mL Oral: Yes COMPARISON: CT CT ABDOMEN PELVIS W from 05/19/2021 FINDINGS: ABDOMEN: Lung Bases: The lung bases are stable compared to 1 week ago. There is a stable right lower lobe 5 m m pulmonary nodule. Liver: Fatty infiltration of the liver. No measurable mass. Portal, Superior Mesenteric, and Splenic Veins: Unremarkable. Gallbladder and Biliary Tract: Status post cholecystectomy. Pancreas: There again seen peripancreatic fluid collections. The largest has shown interval increase in size currently measuring 7.6 AP by 6.4 transverse compared to 6.3 AP by 5.6 transverse. The 2nd le robert also shows interval increase in size measuring 7.2 cm AP x 6.5 cm transverse. This compares to 5 .6 cm AP and 6.0 cm transverse. There are persistent mild inflammatory changes in the right anterior abdomen adjacent to the larger pseudocyst. Spleen: Normal. Adrenals: No masses seen. Kidneys: Normal size, contour and axis. No radiodense stones or obstructive uropathy. Stable renal cy st. No follow-up is recommended. Abdominal Aorta: Abdominal portion non-dilated. Atherosclerosis. Bowel: No obstruction. Mild thickening of the wall of the distal stomach. Appendix is unremarkable. Peritoneal Cavity: No ascites, collection or mesenteric inflammatory response. No free air. Lymph Nodes: Within normal limits. Bones: Within normal limits for the patient's age. Soft Tissues: Findings of a prior right inguinal hernia repair. PELVIS: Bladder: Symmetric distention, no gross wall thickening. Reproductive Organs: Unremarkable as visualized. Lymph Nodes: Within normal limits. Bones: Within normal limits for the patient's age. IMPRESSION: 1. Interval increase in size of the 2 largest peripancreatic fluid collections since 05/19/2021. 2. Persistent mild thickening of the wall of the distal stomach suspicious for gastritis. 3. Persistent inflammatory changes in the anterior right upper abdomen. RADIATION DOSE DELIVERED: 924.03mGy.cm Total DLP DATA REPOSITORY: All CT scans at this facility are submitted to the National Radiology Data Registry (NRDR) Dose Index Registry (DIR) with the [employer] (ACR). RADIATION OPTIMIZATION: All CT scans at this facility use at least one of these dose optimization te chniques: automated exposure control; mA and/or kV adjustment per patient size (includes targeted exa ms where dose is matched to clinical indication); or iterative reconstruction.
[2021-05-26] MEDS: Omnipaque 350 MG/ML 50 ML BTL PO (13:06)
[2021-05-26] MEDS: Breeza Beverage 473 ML BTL PO ×2 (13:07→13:08)
[2021-05-26] MEDS: Omnipaque 350 MG/ML 100 ML BTL IJ (14:38)
[2021-05-26] MEDS: Normal Saline Flush 10 ML SYR IVP (14:40)
== END ==
PROVIDERS: Visit Provider Family Medicine
DX: R11.10 Vomiting, unspecified (principal); K86.3 Pseudocyst of pancreas; R91.1 Solitary pulmonary nodule; K76.0 Fatty (change of) liver, not elsewhere classified; Z90.49 Acquired absence of other specified parts of digestive tract; K31.89 Other diseases of stomach and duodenum
CPT/HCPCS: 74177; J3490; Q9967

== ENCOUNTER 2021-08-25 09:13 | Outpatient (REF) | payer OTHER, SELFPAY ==
[2021-08-26 15:17] LABS: COVID-19 RT-PCR UVMMC Result Negative (Negative)
== END 2021-08-25 09:14 | disposition home or self-care (01) ==
LOC: NCHCN 09:13
PROVIDERS: Visit Provider Family Medicine
DX: Z20.822 Contact with and (suspected) exposure to COVID-19 (principal)
CPT/HCPCS: U0003

== ENCOUNTER 2021-09-25 14:42 | Outpatient (CLI) | payer OTHER, SELFPAY ==
[2021-09-25 15:33] LABS: Abs Immature Grans 0.13 10^3/uL (0.0-0.06); Absolute Basophil Count 0.06 10^3/uL (0.0-0.2); Absolute Monocyte Count 0.92 10^3/uL (0.1-0.8); Absolute Neutrophil Count 5.02 10^3/uL (1.2-6.7); Basophils % 0.7; Eosinophils % 1.2; HCT 47.1 % (40.0-50.0); HGB 15.8 g/dL (13.5-17.5); Immature Grans % 1.6; Lymphocytes % 22.4; MCH 29.6 pg (27.0-33.0); MCHC 33.5 % (32.0-36.0); MCV 88 fL (80-95); MPV 10.9 fL (8.0-11.0); Monocytes % 11.5; Neutrophils % 62.6; Platelet Count 208 10^3/uL (130-400); RBC 5.33 10^6/uL (4.36-5.78); RDW 13.1 % (11.8-14.1); RDW-SD 42.3 fL; WBC 8.03 10^3/uL (4.4-10.8)
[2021-09-25 15:57] LABS: ALT 24 U/L (16-63); AST 16 U/L (15-37); Albumin 3.4 g/dL (3.4-5.0); Alkaline Phosphatase 88 U/L (46-116); Anion Gap 7.9 mmol/L (3-11); BUN 12 mg/dL (7-18); Bilirubin, Total 0.8 mg/dL (0.2-1.0); CO2 30.1 mmol/L (21.0-32.0); Calcium 9.4 mg/dL (8.5-10.1); Chloride 97 mmol/L (98-107); Glucose 125 mg/dL (74-106); Potassium 3.9 mmol/L (3.5-5.1); Sodium 135 mmol/L (136-145); Total Protein 7.5 g/dL (6.4-8.2)
== END 2021-09-25 14:43 | disposition home or self-care (01) ==
LOC: LBO 14:43
PROVIDERS: Visit Provider Physician Assistant
DX: K86.3 Pseudocyst of pancreas (principal)
CPT/HCPCS: 36415; 80053; 85025

== ENCOUNTER 2022-02-12 09:41 | Outpatient (REF) | payer OTHER, SELFPAY ==
[2022-02-12 21:21] LABS: ALT 32 U/L (16-63); AST 26 U/L (15-37); Albumin 3.8 g/dL (3.4-5.0); Alkaline Phosphatase 89 U/L (46-116); Amylase 65 U/L (25-115); Anion Gap 7.7 mmol/L (3-11); BUN 12 mg/dL (7-18); Bilirubin, Total 0.4 mg/dL (0.2-1.0); CO2 27.3 mmol/L (21.0-32.0); CREATININE 1.1 mg/dL (0.70-1.30); Calcium 9.2 mg/dL (8.5-10.1); Chloride 103 mmol/L (98-107); Estimated GFR 81.78 (mL/min/1.73m2); Glucose 190 mg/dL (74-106); Lipase 226 U/L (73-393); Potassium 4.3 mmol/L (3.5-5.1); Sodium 138 mmol/L (136-145); Total Protein 7.7 g/dL (6.4-8.2)
[2022-02-12 21:27] LABS: TSH (W/Ref FT4) 1.14 uIU/mL (0.36-3.74)
[2022-02-20 13:27] LABS: Testosterone, Free 12.5 ng/dL (4.06-15.6); Testosterone, Total 475 ng/dL (240-950)
== END 2022-02-12 09:42 | disposition home or self-care (01) ==
LOC: NCHCN 09:41
PROVIDERS: PCP Family Medicine; Visit Provider Family Medicine
DX: R10.9 Unspecified abdominal pain (principal); K86.3 Pseudocyst of pancreas; R53.83 Other fatigue; E11.9 Type 2 diabetes mellitus without complications; I10 Essential (primary) hypertension
CPT/HCPCS: 80053; 83690; 84402; 84403; 82150; 83036; 84443

== ENCOUNTER 2022-03-25 17:34 | Outpatient (REF) | payer BC, SELFPAY ==
[2022-03-25 18:48] LABS: Abs Immature Grans 0.09 10^3/uL (0.0-0.06); Absolute Basophil Count 0.08 10^3/uL (0.0-0.2); Absolute Eosinophil Count 0.25 10^3/uL (0.0-0.7); Absolute Lymphocyte Count 1.79 10^3/uL (1.2-3.4); Absolute Monocyte Count 0.65 10^3/uL (0.1-0.8); Absolute Neutrophil Count 3.77 10^3/uL (1.2-6.7); Basophils % 1.2; Eosinophils % 3.8; HCT 49.8 % (40.0-50.0); HGB 16.3 g/dL (13.5-17.5); Immature Grans % 1.4; MCH 28.4 pg (27.0-33.0); MCHC 32.7 % (32.0-36.0); MCV 87 fL (80-95); MPV 11.1 fL (8.0-11.0); Monocytes % 9.8; Neutrophils % 56.8; Platelet Count 238 10^3/uL (130-400); RBC 5.73 10^6/uL (4.36-5.78); RDW 14.3 % (11.8-14.1); RDW-SD 45.6 fL; WBC 6.63 10^3/uL (4.4-10.8)
[2022-03-25 19:02] LABS: ALT 39 U/L (16-63); AST 28 U/L (15-37); Albumin 3.8 g/dL (3.4-5.0); Alkaline Phosphatase 93 U/L (46-116); Anion Gap 8.5 mmol/L (3-11); BUN 13 mg/dL (7-18); Bilirubin, Direct 0.1 mg/dL (0.0-0.2); Bilirubin, Total 0.5 mg/dL (0.2-1.0); CO2 27.5 mmol/L (21.0-32.0); Calcium 9.2 mg/dL (8.5-10.1); Chloride 104 mmol/L (98-107); Estimated GFR 91.12 (mL/min/1.73m2); Glucose 165 mg/dL (74-106); Lipase 214 U/L (16-77); Potassium 4.4 mmol/L (3.5-5.1); Sodium 140 mmol/L (136-145); Total Protein 7.3 g/dL (6.4-8.2)
[2022-03-25 19:14] LABS: Hemoglobin A1C 7.3 % (<5.7)
== END 2022-03-25 17:35 | disposition home or self-care (01) ==
LOC: LBN 17:34
PROVIDERS: PCP Family Medicine; Visit Provider Physician Assistant
DX: R11.2 Nausea with vomiting, unspecified (principal); Z86.39 Personal history of other endocrine, nutritional and metabolic disease
CPT/HCPCS: 80048; 80076; 83690; 83036; 85025

== ENCOUNTER 2022-05-01 07:46 | Emergency (ER) | payer BC, SELFPAY ==
[2022-05-01] VITALS (45 sets, daily range): BP systolic 79–152; BP diastolic 49–132; PULSE 90–106; RESP 14–46; TEMP 37.1; O2SAT 91–97
--- NOTE | 2022-05-01 07:45 | RT.EKG_ITS ---
APPROVED REPORT Exam: Resting ECG Reason for Exam: pancreatitis pain Patient Location: E HR:100 bpm ECG Measurements Heart Rate 100 AXIS WI 141 P 8 QRSd 85 QRS 4 QT 349 T 15 QTc 449 Conclusion Sinus tachycardia...rate> 99 Low voltage, precordial leads...precordial leads <1.0mV sinus tachycardia, slight st depressions V3-V5
--- NOTE | 2022-05-01 08:00 | DI.CT_ITS ---
Exam(s) CT ABDOMEN PELVIS W EXAM: CT ABDOMEN PELVIS W CLINICAL HISTORY: hx multiple abd surg, pancreatitis, naus vomiting. TECHNIQUE: Imaging Protocol: Axial computed tomography images with coronal and sagittal reformatted images were created and reviewed CONTRAST MATERIAL: Intravenous: Omnipaque 350 Contrast volume:100 ml Oral: / no COMPARISON: CT CT ABDOMEN PELVIS W from 05/19/[address] ABDOMEN PELVIS WO from 09/25/[address] ABDOMEN PELVIS W from 04/14/2022 FINDINGS: ABDOMEN: Lung Bases: Stable 4 millimeter nodule right lower lobe. Liver: Normal density. No measurable mass. Gallbladder and biliary tract: Cholecystectomy no radiodense calculus or dilation. Pancreas: Stable appearance of pancreatic pseudocyst are there is increased inflammation in the head of the pancreas compared with the prior exam. There is adjacent inflammation of the antrum of the st omach and duodenal sweep.. Stable pancreatic ductal dilatation. Spleen: Normal. Kidneys: Normal size, contour and axis. No radiodense stones or obstructive uropathy. No suspicious m asses seen. Adrenal glands: No masses seen. Abdominal Aorta: Abdominal portion non-dilated. Soft tissues: Unremarkable. PELVIS: Bladder: Nearly empty. No calculi.No focal mass. Bowel: Stomach not well evaluated out oral contrast. No obstruction. No bowel wall thickening. An astomosis mid descending colon. Stool in rectum. Little stool elsewhere. Appendix normal. Peritoneal cavity: No ascites, collection or mesenteric inflammatory response. Bones: Within normal limits for age. Reproductive organs: Within normal limits. Lymph nodes: Unremarkable. Impression: pancreatic pseudocysts as previously noted. There appears to be increased inflammation of pancreatic head compared with the previous exam, consistent with acute pancreatitis RADIATION DOSE DELIVERED: 855.84mGy.cm Total DLP DATA REPOSITORY: All CT scans at this facility are submitted to the National Radiology Data Registry (NRDR) Dose Index Registry (DIR) with the [employer] (ACR). RADIATION OPTIMIZATION: All CT scans at this facility use at least one of these dose optimization te chniques: automated exposure control; mA and/or kV adjustment per patient size (includes targeted exa ms where dose is matched to clinical indication); or iterative reconstruction.
[2022-05-01] MEDS: Normal Saline 1,000 ML 1000 ML IV (08:10)
[2022-05-01 08:17] LABS: Abs Immature Grans 0.03 10^3/uL (0.0-0.06); Absolute Basophil Count 0.01 10^3/uL (0.0-0.2); Absolute Lymphocyte Count 0.14 10^3/uL (1.2-3.4); Absolute Monocyte Count 0.04 10^3/uL (0.1-0.8); Absolute Neutrophil Count 5.48 10^3/uL (1.2-6.7); Basophils % 0.2; HCT 50.8 % (40.0-50.0); HGB 16.7 g/dL (13.5-17.5); Immature Grans % 0.5; Lymphocytes % 2.5; MCH 29.1 pg (27.0-33.0); MCHC 32.9 % (32.0-36.0); MCV 89 fL (80-95); MPV 10.3 fL (8.0-11.0); Monocytes % 0.7; Neutrophils % 96.1; Platelet Count 200 10^3/uL (130-400); RBC 5.74 10^6/uL (4.36-5.78); RDW 13.8 % (11.8-14.1); RDW-SD 44.3 fL
[2022-05-01] MEDS: Ondansetron 4 MG/2 ML VIAL IVP (08:18)
--- NOTE | 2022-05-01 08:23 | W.ED.GENAD ---
Discharge Plan Disposition Patient Disposition: Home Discharge Details Clinical Impression: Pancreatic pseudocyst, Transaminitis, Cecal lesion Primary Care Provider: Renee Watson V ED Provider: Emery Grissom Home Meds and New Rx's Prescriptions: New scopolamine base 1 mg over 3 days patch 3 day 1 patch transdermal Q3D PRNQty: 10 0RF promethazine 50 mg suppository 50 mg [place] TID PRN PRNQty: 12 0RF No Action (DME) Dexcom G6 Sensor Device See Rx Instructions .ROUTE .MEDSUPPLY Qty: 3 Rx Instructions: As directed ondansetron 8 mg tablet,disintegrating 8 mg PO TID PRN (Reason: nausea and vomiting) Qty: 270 0RF bisacodyl 10 mg suppository 10 mg [place] DAILY PRN PRN (Reason: constipation) Qty: 10 6RF scopolamine base 1 mg over 3 days patch 3 day 1 patch transdermal Q3D PRN (Reason: nausea and vomiting) Qty: 10 3RF acetaminophen 325 MG tablet 650 mg PO Q4H PRN (DME) pen needle, diabetic [Pen Needle] 31 gauge x 5/16 needle See Dose Instructions .ROUTE .MEDSUPPLY Qty: 500 3RF Dose Instruction: As directed with 5-times daily insulin Rx Instructions: To administer insulin 5 times daily. Dispense covered brand. tacrolimus 0.03 % ointment 1 applic topical BID PRN Rx Instructions: apply thin layer to affected areas face/forehead/groin Viokace 20,880-78,300- 78,300 unit tablet 4 tab PO TID Rx Instructions: 4 tabs with meals and 2 tabs with snacks multivitamin 1 EACH capsule 1 cap PO DAILY tramadol 50 mg tablet 50 mg PO TID PRN Rx Instructions: Agreement is for 3 pills per day + 2 extra doses per month promethazine [Promethegan] 50 mg suppository 50 mg [place] TID PRN Patient Comments: INSERT 1 SUPPOSITORY EVERY 6-8 HOURS NEEDED FOR NAUSEA Discharge Instructions Instructions: Acute Nausea and Vomiting (ED) Additional Instructions: Please continue with light liquid diet at home over the next day slowly wean onto more substantial food intake. Please return to the emergency department for any worsening symptoms. Follow-up with your primary care and specialists as an outpatient. Again on your CT scan today we saw chronic appearing pseudocysts of your pancreas there was also an area of irregularity near your cecum which requires follow-up evaluation. Medical Decision Making 52-year-old male history of pancreatitis, recurrent nausea vomiting, multiple abdominal surgeries, presents with nausea and vomiting this morning multiple times, dry heaving on arrival, patient did have syncopal event upon arrival in triage box in the setting of vomiting, denies chest pain or shortness of breath. Abdomen soft nontender nondistended, slightly pale and diaphoretic mildly uncomfortable appearing, hypertensive and tachycardic on arrival. Afebrile, currently nontoxic has returned to baseline no seizure activity no trauma to head. Given multiple abdominal surgeries now with nausea and vomiting must consider bowel obstruction was also consider recurrent pancreatitis versus gastritis versus enterocolitis patient had a prior cholecystectomy therefore less likely biliary in nature. Lower suspicion for UTI. Must consider atypical ACS lower suspicion for aortic pathology. Screening labs imaging fluids antiemetics close reassessment disposition pending results and imaging 10: 19 patient was comfortably no acute distress color is greatly improved. No further vomiting. Hemodynamically stable. Blood pressure and heart rate have improved. Chronic appearing stenosis of pancreas. Consider component of biliary duct obstruction given transaminitis and elevated bilirubin. Patient would like to trial p.o. challenge, if failed will be admitted for n.p.o. status fluid hydration and further observation. May benefit from MRCP if no clinical improvement. Discussed incidental cecal finding on CT scan and need for close follow-up. 11: 40 patient resting comfortably hemodynamically stable. Tolerated p.o. without nausea and vomiting. Patient would like to trial home today given strict return precautions for any worsening symptoms. HPI General Date/Time Provider Initiated Documentation: 05/01/22 07:54. HPI Narrative: 52-year-old male history of pancreatitis, hyperlipidemia, presents with recurrent nausea and vomiting over the past several hours, given his of a promethazine suppository this morning; history of multiple abdominal surgeries. Denies chest pain or shortness of breath Related Data Home Medications Medication Instructions Recorded Confirmed multivitamin 1 cap PO DAILY 09/13/13 05/01/22 acetaminophen 325 mg tablet 650 mg PO Q4H PRN 07/22/14 05/01/22 pen needle, diabetic 31 gauge x #500 ea 07/30/19 01/09/2107/06 (Pen Needle) blood-glucose sensor (Dexcom G6 #3 ea 09/03/20 01/09/21 Sensor device) tacrolimus 0.03 % topical ointment 1 applic topical BID PRN 10/03/20 05/01/22 [id number] 4 tab PO TID 10/17/20 05/01/22 20,880-78,300-78,300 unit tablet (Viokace) ondansetron 8 mg disintegrating 8 mg PO TID PRN nausea and 10/24/20 05/01/22 tablet vomiting #270 tabs bisacodyl 10 mg rectal suppository 10 mg [place] DAILY PRN PRN 01/09/21 05/01/22 constipation #10 supp scopolamine base 1 mg over 3 days 1 patch transdermal Q3D PRN nausea 01/09/21 05/01/22 transdermal patch and vomiting #10 ea promethazine 50 mg rectal 50 mg [place] TID PRN PRN #12 ea 05/01/22 suppository promethazine 50 mg rectal 50 mg [place] TID PRN 05/01/22 05/01/22 suppository (Promethegan) scopolamine base 1 mg over 3 days 1 patch transdermal Q3D PRN #10 ea 05/01/22 transdermal patch tramadol 50 mg tablet 50 mg PO TID PRN 05/01/22 05/01/22 Previous Rx's Medication Instructions Recorded pen needle, diabetic 31 gauge x #500 ea 07/30/1907/06 (Pen Needle) ondansetron 8 mg disintegrating 8 mg PO TID PRN nausea and 10/24/20 tablet vomiting #270 tabs bisacodyl 10 mg rectal suppository 10 mg [place] DAILY PRN PRN 01/09/21 constipation #10 supp scopolamine base 1 mg over 3 days 1 patch transdermal Q3D PRN nausea 01/09/21 transdermal patch and vomiting #10 ea promethazine 50 mg rectal 50 mg [place] TID PRN PRN #12 ea 05/01/22 suppository scopolamine base 1 mg over 3 days 1 patch transdermal Q3D PRN #10 ea 05/01/22 transdermal patch Allergies Allergy/AdvReac Type Severity Reaction Status Date / Time pravastatin Allergy Mild Other (See Verified 05/01/22 08:10 Comment) gemfibrozil Allergy Unknown Verified 05/01/22 08:10 iodine Allergy Unknown breaks Verified 05/01/22 08:10 skin down prochlorperazine AdvReac Severe Visual Verified 05/01/22 08:10 [From Compazine] Disturbances house dust AdvReac Intermediate Verified 05/01/22 08:10 hydromorphone AdvReac manic Verified 05/01/22 08:10 squid AdvReac nausea Verified 05/01/22 08:10 enteric coating AdvReac Unknown N,V Uncoded 05/01/22 08:10 General Stated Complaint: [id number] GUNNER: 2 Review of Systems Narrative: Review of Systems Constitutional: negative Eyes: negative ENT: negative Cardiovascular: negative Respiratory: negative Gastrointestinal: Nausea, vomiting : negative Musculoskeletal: negative Skin: negative Neurologic: negative Psych: negative PFSH All Active Problems (Updated 05/01/22 @ 11:43 by Emery Grissom MD) Pancreatic pseudocyst (Acute) Transaminitis (Acute) Cecal lesion (Acute) Pharyngitis (Acute) Strep NEG (01/01/21), COVID NEG (12/29/20) .. RTC if worse. 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) [facility] [place] note: S/p stent placement to create duodenal pancreatic fistula to drain pancreatic fluid collections Portal hypertension (Chronic 12/14/13) 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 Vitamin D deficiency (Chronic 01/22/14) Active Problem List Pharyngitis (Acute) Nausea & vomiting (Acute) Chronic pancreatitis (Acute) Chronic abdominal pain (Acute) Seborrheic dermatitis (Chronic) Obesity (Chronic) Diabetes (Chronic 07/23/14) Hyperlipidemia (Chronic 08/20/15) Pancreatic insufficiency (Chronic 10/08/13) 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 Controlled with metoprolol LARISA (obstructive sleep apnea) (07/23/14) CPAP in the past; repeat sleep study in 2018 showing resolution of LARISA Pancreatitis Protein calorie malnutrition (12/26/13) Surgical History Cholecystectomy Endoscopy 11/22/2014 stent placement to create duodenal pancreatic fistula to drain pancreatic fluid collections [place] [place] History of biopsy (02/13/20) punch biopsy [place] [place] Laparotomy (12/20/13) Repair of inguinal hernia 1998 robotic ventral hernia repair (03/11/16) [facility] [place] Family History Mother Essential hypertension Autoimmune hepatitis Hyperlipidemia Rheumatoid arthritis Father Essential hypertension Mental disorder paranoid schiziophrenia Grandfather Heart disease Myocardial infarction Grandfather Stroke Grandmother Skin, metastatic cancer to Grandmother Diabetes Social History Smoking/Tobacco Use Status: Current-Occasional Tobacco Type: pipe Other: Once every 3-4weeks Smokeless tobacco user: other Smoking risk assessment performed?: Yes Alcohol Intake: never Drug use: Never Substance use type: does not use current occupation: behavioral health at [employer] Working smoke detector in home: Yes Fire extinguisher in home: Yes Carbon monox detector in home: Yes Do you feel safe at home: Yes Do you feel safe in your relationship?: Yes Exam Narrative Exam Narrative: Physical Examination General: alert, awake, cooperative, mildly uncomfortable HEENT: normocephalic, atraumatic; PERRL, EOM intact, conjunctiva normal; no nasal discharge; moist mucous membranes, oral and pharyngeal mucosa normal, tolerating secretions Neck: supple, trachea midline; full ROM Chest: normal to inspection Respiratory: normal respiratory effort, speaking in full sentences, clear to auscultation, no wheezing, rales or rhonchi Cardiac: regular rate, regular rhythm, S1S2 intact, no murmurs rubs or gallops GI: abdomen soft, non-tender, non-distended; no palpable mass or hepatosplenomegaly Skin: Mildly pale, diaphoretic Neuro: AAOx3, normal speech, moving all extremities Extremities: No peripheral edema Psych: Appropriate mood and affect Course Vital Signs Vital signs: Vital Signs Temperature 37.1 C 05/01/22 08:02 Pulse 100 H 05/01/22 08:02 Respiratory Rate 19 05/01/22 08:02 Blood Pressure 110/76 05/01/22 08:02 Pulse Oximetry 95 05/01/22 08:02 Temperature 37.1 C 05/01/22 08:02 Temperature Source Oral 05/01/22 08:02 Pulse 100 H 05/01/22 08:02 Respiratory Rate 19 05/01/22 08:02 Respiratory Effort Normal, Non-Labored 05/01/22 08:08 Blood Pressure 110/76 05/01/22 08:02 Blood Pressure Position Sitting 05/01/22 08:02 Pulse Oximetry 95 05/01/22 08:02 Oxygen Delivery Method Room Air 05/01/22 08:02 Oxygen Flow Rate 0 05/01/22 08:02 Pain Level 0 05/01/22 08:02
--- NOTE | 2022-05-01 08:32 | NUR.NOTE ---
Nursing Note:Started vomiting last night. Hasn't been able to keep anything down since, not even fluids. Started feeling weak as well. This AM was trying to put on shoes and had to set himself on floor after because he was to tired. Son had to help him out to the car to come here. Passed out while dry heaving here in Triage.
[2022-05-01 08:35] LABS: ALT 104 U/L (16-63); AST 145 U/L (15-37); Albumin 3.5 g/dL (3.4-5.0); Alkaline Phosphatase 139 U/L (46-116); Anion Gap 10.3 mmol/L (3-11); BUN 15 mg/dL (7-18); Bilirubin, Total 2.8 mg/dL (0.2-1.0); CO2 24.7 mmol/L (21.0-32.0); CREATININE 1.4 mg/dL (0.70-1.30); Calcium 8.8 mg/dL (8.5-10.1); Chloride 103 mmol/L (98-107); Estimated GFR 60.85 (mL/min/1.73m2); Glucose 187 mg/dL (74-106); Lipase 109 U/L (16-77); Potassium 3.8 mmol/L (3.5-5.1); Sodium 138 mmol/L (136-145); Total Protein 6.6 g/dL (6.4-8.2); Troponin I < 50 ng/L (<or=60)
[2022-05-01] MEDS: Normal Saline Flush 10 ML SYR IVP (08:56)
[2022-05-01] MEDS: Omnipaque 350 MG/ML 100 ML BTL IJ (08:56)
[2022-05-01] MEDS: Normal Saline - Diluent 50 ML VIAL IJ (08:57)
[2022-05-01] MEDS: Lactated Ringers 1,000 ML 125 ML IV (09:44)
--- NOTE | 2022-05-01 09:50 | DI.VRAD_ITS ---
Addendum created by Antelmo Morse MD on 05/01/2022 9:52:12 AM EST: THIS REPORT CONTAINS FINDINGS THAT MAY BE CRITICAL TO PATIENT CARE. The findings were verbally communicated via telephone conference with Emery Grissom at 9:51 AM EST on 05/01/2022. The findings were acknowledged and understood. These findings were present on the prior study dated April 14 Initial report created on 05/01/2022 9:49:43 AM EST: PROCEDURE INFORMATION: Exam: CT Abdomen And Pelvis With Contrast Exam date and time: 05/01/2022 9:00 AM Age: 52 years old Clinical indication: Other: HX multiple abd surgeries, pancreatitis, prior surgery; Surgery date: 6+ months; Surgery type: Unknown TECHNIQUE: Imaging protocol: Computed tomography of the abdomen and pelvis with contrast. Radiation optimization: All CT scans at this facility use at least one of these dose optimization techniques: automated exposure control; mA and/or kV adjustment per patient size (includes targeted exams where dose is matched to clinical indication); or iterative reconstruction. Contrast material: OMNIPAQUE 350; Contrast volume: 100 ml; Contrast route: INTRAVENOUS (IV); COMPARISON: CT ABDOMEN PELVIS W 04/14/2022 11:13 AM FINDINGS: Lungs: 4 point 4 mm pulmonary nodule in the right lower lobe Liver: Normal. No mass. Gallbladder and bile ducts: Cholecystectomy Pancreas: Inflammatory changes of the pancreas consistent with acute pancreatitis and pancreatic pseudocysts Spleen: Normal. No splenomegaly. Adrenal glands: Normal. No mass. Kidneys and ureters: 2.1 cm simple cyst in the anterior aspect of the kidney Stomach and bowel: 4.5 cm fluid collection within the stomach. Additional 2.4 cm fluid collection in the head of the pancreas. . This fluid collection extends inferiorly in the head of the pancreas. These findings most likely represent pancreatic pseudocysts . Bowel wall thickening in the transverse colon may represent colitis. Complex appearance of the cecum. Areas of enhancement and bowel wall thickening. Recommend further evaluation if colon cancer is suspected. Series 5 image [id number]. Appendix: Normal appendix Intraperitoneal space: Unremarkable. No free air. No significant fluid collection. Vasculature: Unremarkable. No abdominal aortic aneurysm. Lymph nodes: Unremarkable. No enlarged lymph nodes. Urinary bladder: The bladder is decompressed Reproductive: Unremarkable as visualized. Bones/joints: Unremarkable. No acute fracture. Soft tissues: Unremarkable. IMPRESSION: Inflammatory changes of the pancreas consistent with acute pancreatitis and pancreatic pseudocysts 1. 4.5 cm fluid collection within the stomach. Additional 2.4 cm fluid collection in the head of the pancreas. . This fluid collection extends inferiorly in the head of the pancreas. These findings most likely represent pancreatic pseudocysts 2. Bowel wall thickening in the transverse colon may represent colitis. 3. Complex appearance of the cecum. Areas of enhancement and bowel wall thickening. Recommend further evaluation if colon cancer is suspected. Series 5 image [id number]. Dictated and Authenticated by: Antelmo Morse MD. Ordering:NEYMAR Land MD
[2022-05-01] MEDS: Ondansetron O.D.T. 4 MG TABEF, 3 TABS/BTL PO (11:57)
== END 2022-05-01 12:18 | disposition home or self-care (01) ==
PROVIDERS: Emergency Provider Emergency Medicine; PCP Family Medicine
DX: K86.3 Pseudocyst of pancreas (principal); R74.01 Elevation of levels of liver transaminase levels; K63.89 Other specified diseases of intestine
CPT/HCPCS: 36415; 36416; 80053; 82962; 83690; 93005; 96361; 96365; 96366; 96374; 96375; 99284; 74177; 81003; 84484; 85025; 93010; J2405; J3490

== ENCOUNTER 2022-08-12 02:11 | Outpatient (CLI) | payer BC, SELFPAY ==
[2022-08-12 16:05] LABS: Hemoglobin A1C 7.4 % (<5.7)
[2022-08-12 16:15] LABS: ALT 40 U/L (16-63); AST 19 U/L (15-37); Albumin 3.6 g/dL (3.4-5.0); Alkaline Phosphatase 78 U/L (46-116); Anion Gap 8.8 mmol/L (3-11); BUN 14 mg/dL (7-18); Bilirubin, Total 0.7 mg/dL (0.2-1.0); CO2 28.2 mmol/L (21.0-32.0); Chloride 103 mmol/L (98-107); Estimated GFR 91.12 (mL/min/1.73m2); Glucose 219 mg/dL (74-106); Potassium 4.2 mmol/L (3.5-5.1); Sodium 140 mmol/L (136-145); Total Protein 6.8 g/dL (6.4-8.2)
== END 2022-08-12 02:12 | disposition home or self-care (01) ==
PROVIDERS: PCP Family Medicine; Visit Provider Family Medicine
DX: E11.9 Type 2 diabetes mellitus without complications (principal); Z86.16 Personal history of COVID-19
CPT/HCPCS: 36415; 80053; 83036

== ENCOUNTER 2024-01-20 00:09 | Outpatient (CLI) | payer BC, SELFPAY ==
[2024-01-20] MEDS: Barium Sulfate 2% W/V-Creamy Vanilla Smoothie 450 ML BTL PO ×2 (07:17→07:18)
[2024-01-20 07:59] LABS: Abs Immature Grans 0.07 10^3/uL (0.0-0.06); Absolute Basophil Count 0.07 10^3/uL (0.0-0.2); Absolute Eosinophil Count 0.14 10^3/uL (0.0-0.7); Absolute Lymphocyte Count 1.35 10^3/uL (1.2-3.4); Absolute Neutrophil Count 3.91 10^3/uL (1.2-6.7); Basophils % 1.1 %; Eosinophils % 2.3 %; HCT 48.5 % (40.0-50.0); HGB 15.8 g/dL (13.5-17.5); Immature Grans % 1.1 %; MCH 29.3 pg (27.0-33.0); MCHC 32.6 % (32.0-36.0); MCV 90 fL (80-95); MPV 10.2 fL (8.0-11.0); Monocytes % 9.8 %; Neutrophils % 63.7 %; Platelet Count 242 10^3/uL (130-400); RBC 5.39 10^6/uL (4.36-5.78); RDW 12.5 % (11.8-14.1); RDW-SD 41.1 fL; WBC 6.14 10^3/uL (4.4-10.8)
[2024-01-20 08:16] LABS: ALT 22 U/L (16-63); AST 15 U/L (15-37); Albumin 3.3 g/dL (3.4-5.0); Alkaline Phosphatase 92 U/L (46-116); Anion Gap 5.7 mmol/L (3-11); BUN 15 mg/dL (7-18); Bilirubin, Total 0.61 mg/dL (0.2-1.0); CO2 30.3 mmol/L (21.0-32.0); CREATININE 1.2 mg/dL (0.70-1.30); Calcium 9.1 mg/dL (8.5-10.1); Chloride 104 mmol/L (98-107); Estimated GFR 72.76 (mL/min/1.73m2); Glucose 204 mg/dL (74-106); Lipase 67 U/L (<78); Potassium 4.4 mmol/L (3.5-5.1); Sodium 140 mmol/L (136-145); Total Protein 6.9 g/dL (6.4-8.2)
[2024-01-20] MEDS: Normal Saline - Diluent 50 ML VIAL IJ (09:10)
[2024-01-20] MEDS: Omnipaque 350 MG/ML 100 ML BTL IJ (09:11)
[2024-01-20 09:22] LABS: Calculated LDL 83 mg/dL (<100); Cholesterol 157 mg/dL (<200); HDL Cholesterol 42 mg/dL (40-60); Triglyceride 160 mg/dL (<150); Vitamin D 25 Total 37.6 ng/mL (30-100)
--- NOTE | 2024-01-20 09:31 | DI.CT_ITS ---
Exam(s) CT ABDOMEN PELVIS W EXAM: CT ABDOMEN PELVIS W CLINICAL HISTORY: ABD PAIN R10.9 W N/V 4-5 DAYS, HX PANCREATIC PSEUDOCYST AND REG CYSTS TECHNIQUE: Imaging Protocol: Axial computed tomography images with coronal and sagittal reformatted images were created and reviewed. CONTRAST MATERIAL: Intravenous: Omnipaque 350 Contrast volume:100 mL Oral: Yes COMPARISON: CT CT ABDOMEN PELVIS W from 05/01/2022 FINDINGS: ABDOMEN: Lung Bases: Normal where visualized. Liver: Normal density. No measurable mass. Portal, Superior Mesenteric, and Splenic Veins: There are varices again seen in the upper abdomen. T he portal and superior mesenteric veins are patent. Gallbladder and Biliary Tract: Status post cholecystectomy. No intrahepatic biliary ductal dilatatio n. Pancreas: There is pancreatic atrophy. There has been interval increase in size of the peripancreati c cysts. The largest now measures 6.8 x 6.3 cm (series 11, image 50). This compares to 4.5 x 3.9 cm on the prior examination. The more inferior lesion now measures 5.1 x 5.4 cm. This compares to 2.7 x 2.6 cm on the prior examination. There has been interval progression of the pancreatic ductal dil atation. Pancreatic calcifications are also present. Spleen: Normal. Adrenals: No masses seen. Kidneys: Normal size, contour and axis. No radiodense stones or obstructive uropathy. There is a stab le simple left renal cyst. No follow-up is recommended. Abdominal Aorta: Abdominal portion non-dilated. Atherosclerotic calcification is present. Bowel: No obstruction or bowel wall thickening. Appendix is unremarkable. Peritoneal Cavity: No ascites, collection or mesenteric inflammatory response. No free air.There are findings of a prior right inguinal hernia repair. Lymph Nodes: Within normal limits. Bones: Within normal limits for the patient's age. Soft Tissues: Unremarkable. PELVIS: Bladder: Symmetric distention, no gross wall thickening. Reproductive Organs: Unremarkable as visualized. Lymph Nodes: Within normal limits. Bones: Within normal limits for the patient's age. IMPRESSION: Interval increase in size of the peripancreatic/intrapancreatic cysts since 05/01/2022. RADIATION DOSE DELIVERED: 488.12mGy.cm Total DLP DATA REPOSITORY: All CT scans at this facility are submitted to the National Radiology Data Registry (NRDR) Dose Index Registry (DIR) with the [employer] ([employer]). RADIATION OPTIMIZATION: All CT scans at this facility use at least one of these dose optimization te chniques: automated exposure control; mA and/or kV adjustment per patient size (includes targeted exa ms where dose is matched to clinical indication); or iterative reconstruction.
== END 2024-01-20 00:29 ==
LOC: DI 00:09
PROVIDERS: PCP Family Medicine; Visit Provider Family Medicine
DX: R10.9 Unspecified abdominal pain (principal); K86.2 Cyst of pancreas
CPT/HCPCS: 80053; 80061; 82306; 83690; 74177; 85025; J3490